=== PATIENT | female | born 1945 | race Caucasian/White ===

== ENCOUNTER 2017-03-22 15:16 | Observation (INO) | payer OTHER ==
--- NOTE | 2017-03-22 15:22 | EDPHY ---
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 HISTORY OF PRESENT ILLNESS: This patient very pleasant 71-year-old female she does have significant past medical history for coronary artery disease with 1 stent in her RCA 6 years old, she lives locally here [place] she presents emergency room with chest discomfort with her at bedside. She does not have an established yield analyst here. Her cardiac stent was placed in [place]. Patient tells me that she has been under lot of stress recently. She tells me that she was getting a bath earlier was very hot bath she developed a tightness around her chest from around her back like a band across her chest. This lasted approximately 20 minutes. She decided to take for 2 baby aspirin and nitroglycerin this nitroglycerin made her very dizzy. She thinks she may have had a syncopal episode after taking the nitroglycerin after hot bath. She ended up on the floor. Does not report severe headache or neck pain or significant trauma. Patient states that she had a 2nd episode of chest tightness bandlike across her chest wall going on a walk today. She presents emergency room with a discomfort across her chest as bandlike. Tightness. Denies nausea. Diaphoresis. Does complain of fatigue. Past Medical History: Coronary disease with 1 stent, [place] Past Surgical History: PTCA Social History: Denies daily use of tobacco or drugs, does have a glass of wine per evening Family History: Noncontributory ROS REVIEW OF SYSTEMS: A comprehensive 10 point review of systems is otherwise negative aside from elements mentioned in the history of present illness. Exam Constitutional appears anxious, stress, triage nursing summary reviewed, vital signs reviewed, awake/alert. Eyes normal conjunctivae and sclera, EOMI, PERRLA. HENT normal inspection, atraumatic, moist mucus membranes, no epistaxis, neck supple/ no meningismus, no raccoon eyes. Respiratory clear to auscultation bilaterally, normal breath sounds, no respiratory distress, no wheezing. Cardiovascular rate normal, regular rhythm, no murmur, no edema, distal pulses normal. Gastrointestinal soft, non-tender, no rebound, no guarding, normal bowel sounds, no distension, no pulsatile mass. Genitourinary no CVA tenderness. Musculoskeletal no midline vertebral tenderness, full range of motion, no calf swelling, no tenderness of extremities, no meningismus, good pulses, neurovascularly intact. Skin pink, warm, & dry, no rash, skin atraumatic. Neurologic awake, alert and oriented x 3, AAOx3, moves all 4 extremities equally, motor intact, sensory intact, CN II-XII intact, normal cerebellar, normal vision, normal speech. Psychiatric normal mood/affect. Heme/Lymph/Immune no lymphadenopathy. 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 Re-evaluation: EKG interpretation by me on record in [employer] system. Impression time of EKG 1527, this is sinus rhythm rate of 70 I do not appreciate any acute ST elevation or significant ST depression. Flat T-waves noted in inferior leads in 2, 3, AVF. 1617: ED x-ray chest one view negative for acute cardiopulmonary disease. 1617: Re-evaluation at this time patient resting comfortably she feels better after IV Ativan, receive rest of her aspirin and nitroglycerin her chest discomfort or tightness did improve with nitroglycerin. EKG is nonischemic troponin D-dimer negative. Blood work reassuring. Given her age, risk factors of coronary artery disease with 1 stent, chest tightness improved with nitroglycerin she will need to be admitted for ACS rule out. She is agreeable this plan. I will consult the hospitalist for admission. 1631: I spoke with Dr. Vanegas who has accepted admission for this patient. Plan for patient ACS rule out. I will also touch base with Cardiology as this patient has no established yield analyst does have a RCA stent. Coming in the emergency room for ACS rule out. EKG interpretation by me on record in [employer] system. Impression time of EKG 16 30, sinus rhythm rate of 59 no acute ischemic changes appreciated. Unchanged from previous EKG. 1638: Spoke with Lazaro with [facility]. Their plan on consulting on this patient. Source: Patient - Personal History Current Tetanus/Diphtheria Vaccine: Yes Tetanus Vaccine Date: < 10 years - Medical/Surgical History Hx Asthma: No Hx Chronic Respiratory Disease: No Hx Diabetes: No Hx Cardiac Disease: Yes Hx Renal Disease: No Hx Cirrhosis: No Hx Alcoholism: No Hx HIV/AIDS: No Hx Splenectomy or Spleen Trauma: No Other PMH: MITTAL, CAD, heart stent x 1 2011, numerous orthopedic surgeries, depression - Social History Smoking Status: Never smoked Constitutional: Initial Vital Signs Temperature (C) 36.5 C 03/22/17 15:17 Heart Rate 62 03/22/17 15:17 Respiratory Rate 18 03/22/17 15:17 Blood Pressure 149/103 H 03/22/17 15:17 O2 Sat (%) 97 03/22/17 15:17 O2 Delivery Mode Room Air Allergies/Adverse Reactions: ciprofloxacin [From Cipro] Allergy (Intermediate, Verified 03/22/17 15:20) Hives ciprofloxacin HCl [From Cipro] Allergy (Verified 07/29/15 18:39) gluten Allergy (Verified 07/29/15 18:40) meperidine HCl [From Demerol] Allergy (Verified 07/29/15 18:40) milk Allergy (Verified 07/29/15 18:40) Sulfa (Sulfonamide Antibiotics) Allergy (Verified 07/29/15 18:39) Home Medications: Medication Instructions Recorded Aspirin EC [Aspirin EC 81 mg (*)] 81 mg PO HS 03/22/17 Cholecalciferol Vit D3 [Vitamin D3 1,000 units PO DAILY 03/22/17 (*)] Herbals/Supplements -Info Only 1 ea PO DAILY 03/22/17 Melatonin [Melatonin 3 MG (*)] 4.5 mg PO HS 03/22/17 Multivitamins [Multivitamin (*)] 1 each PO DAILY 03/22/17 Basye-3 Fatty Acids [Fish Oil 1000 1,000 mg PO DAILY 03/22/17 mg (*)] Pravastatin Sodium 20 mg PO HS 03/22/17 Thyroid [[place] Thyroid 60 MG (*)] 60 mg PO DAILY10 03/22/17 Vitamin B Complex [Super B-50 1 each PO DAILY 03/22/17 Complex] Medical Decision Making - Diagnostics Imaging Results: Imaging Impressions Chest X-Ray 03/22/17 15:36 Impression: Mild interstitial prominence, which could be related to bronchitis. - Data Points Laboratory Results: Laboratory Results 03/22/17 15:31 03/22/1717 03/22/17 15:31 15:31 15:31 WBC 6.49 10^3/uL 10^3/uL (3.80-9.50) RBC 4.64 10^6/uL 10^6/uL (4.18-5.33) Hgb 13.9 g/dL g/dL (12.6-16.3) Hct 41.9 % % (38.0-47.0) MCV 90.3 fL fL (81.5-99.8) MCH 30.0 pg pg (27.9-34.1) MCHC 33.2 g/dL g/dL (32.4-36.7) RDW 14.6 % % (11.5-15.2) Plt Count 178 10^3/uL 10^3/uL (150-400) MPV 10.8 fL fL (8.7-11.7) Neut % (Auto) 48.1 % % (39.3-74.2) Lymph % (Auto) 40.1 % % (15.0-45.0) [place] % (Auto) 9.2 % % (4.5-13.0) Eos % (Auto) 1.8 % % (0.6-7.6) Baso % (Auto) 0.5 % % (0.3-1.7) Nucleat RBC Rel Count 0.0 % % (0.0-0.2) Absolute Neuts (auto) 3.12 10^3/uL 10^3/uL (1.70-6.50) Absolute Lymphs (auto) 2.60 10^3/uL 10^3/uL (1.00-3.00) Absolute Monos (auto) 0.60 10^3/uL 10^3/uL (0.30-0.80) Absolute Eos (auto) 0.12 10^3/uL 10^3/uL (0.03-0.40) Absolute Basos (auto) 0.03 10^3/uL 10^3/uL (0.02-0.10) Absolute Nucleated RBC 0.00 10^3/uL 10^3/uL (0-0.01) Immature Gran % 0.3 % % (0.0-1.1) Immature Gran # 0.02 10^3/uL 10^3/uL (0.00-0.10) PT 13.3 SEC SEC (12.0-15.0) INR 1.02 (0.83-1.16) APTT 28.4 SEC SEC (23.0-38.0) D-Dimer < 0.27 ug/mLFEU ug/mLFEU (0.00-0.50) Magnesium 2.0 mg/dL mg/dL (1.6-2.3) Total Bilirubin 0.6 mg/dL mg/dL (0.1-1.4) Conjugated Bilirubin 0.3 mg/dL mg/dL (0.0-0.5) Unconjugated Bilirubin 0.3 mg/dL mg/dL (0.0-1.1) AST 31 IU/L IU/L (14-46) ALT 35 IU/L IU/L (9-52) Alkaline Phosphatase 67 IU/L IU/L (38-126) Creatine Kinase 37 IU/L IU/L (0-156) CK-MB (CK-2) Fraction 0.85 ng/mL ng/mL (0-3.19) Troponin I < 0.012 ng/mL ng/mL (0-0.034) NT-Pro-B Natriuret Pep 66 pg/mL pg/mL (0-125) Total Protein 7.6 g/dL g/dL (6.3-8.2) Albumin 4.7 g/dL g/dL (3.5-5.0) Lipase 105.0 IU/L IU/L (23-300) Medications Given: Discontinued Medications Aspirin (Aspirin) 324 mg PO EDNOW ONE Stop: 03/22/17 15:37 Last Admin: 03/22/17 15:50 Dose: 324 mg Sodium Chloride (Ns) 1,000 mls @ 0 mls/hr IV ONCE ONE PRN Reason: Wide Open Stop: 03/22/17 15:37 Last Admin: 03/22/17 15:50 Dose: 1,000 mls Lorazepam (Ativan Injection) 0.5 mg IVP EDNOW ONE Stop: 03/22/17 15:37 Last Admin: 03/22/17 15:50 Dose: 0.5 mg Nitroglycerin (Nitrostat) 0.4 mg SL EDNOW ONE Stop: 03/22/17 15:42 Last Admin: 03/22/17 16:00 Dose: 0.4 mg Departure - Departure Disposition: [facility] Inpatient Acute Clinical Impression: Chest pain Qualifiers: Chest pain type: unspecified Qualified Code(s): R07.9 - Chest pain, unspecified Condition: Fair Referrals: ELPIDIO MULLEN [Primary Care Provider] - As per Instructions
[2017-03-22] MEDS ORDERED: NS 1,000 ML IV ONE (15:36)
[2017-03-22] MEDS ORDERED: ASPIRIN 81 MG CHEWABLE TAB PO ONE (15:36)
[2017-03-22] MEDS ORDERED: LORazepam 2 MG/ML INJ IVP ONE ×2 (15:36→21:00)
[2017-03-22] MEDS ORDERED: NITROGLYCERIN 0.4 MG BTL SL ONE (15:41)
[2017-03-22 15:42] LABS: % IMMATURE GRANULYOCYTES 0.3 % (0.0-1.1); ABSOLUTE IMMATURE GRANULOCYTES 0.02 10^3/uL (0.00-0.10); ADD DIFF? NO; ADD MORPH? NO; ADD SCAN? NO; ATYPICAL LYMPHOCYTE FLAG 0 (0-99); FRAGMENT RBC FLAG 0 (0-99); HEMATOCRIT 41.9 % (38.0-47.0); HEMOGLOBIN 13.9 g/dL (12.6-16.3); LEFT SHIFT FLG 0 (0-99); LIPEMIA HEMOLYSIS FLAG 80 (0-99); MEAN CELL HEMOGLOBIN CONCENTR. 33.2 g/dL (32.4-36.7); MEAN CELL VOLUME 90.3 fL (81.5-99.8); MEAN PLATELET VOLUME 10.8 fL (8.7-11.7); PLATELET CLUMPS FLAG 10 (0-99); PLATELET COUNT 178 10^3/uL (150-400); RED BLOOD CELL COUNT 4.64 10^6/uL (4.18-5.33); RED CELL DISTRIBUTION WIDTH 14.6 % (11.5-15.2)
[2017-03-22 15:54] LABS: APTT 28.4 SEC (23.0-38.0)
[2017-03-22 15:58] LABS: ALANINE AMINOTRANSFERASE 35 IU/L (9-52); ALBUMIN 4.7 g/dL (3.5-5.0); ALKALINE PHOSPHATASE 67 IU/L (38-126); ASPARTATE AMINOTRANSFERASE 31 IU/L (14-46); BILIRUBIN,TOTAL 0.6 mg/dL (0.1-1.4); BILIRUBIN-CONJUGATED 0.3 mg/dL (0.0-0.5); BILIRUBIN-UNCONJUGATED 0.3 mg/dL (0.0-1.1); TOTAL PROTEIN 7.6 g/dL (6.3-8.2)
[2017-03-22 16:04] LABS: INR 1.02 (0.83-1.16); PROTIME(PATIENT) 13.3 SEC (12.0-15.0)
[2017-03-22 16:09] LABS: CREATINE KINASE-MB FRACTION 0.85 ng/mL (0-3.19); TROPONIN I < 0.012 ng/mL (0-0.034)
--- NOTE | 2017-03-22 16:22 | CPEKG ---
Heart Rate: 70 RR Interval: 857 P-R Interval: 168 QRSD Interval: 94 QT Interval: 432 QTC Interval: 467 P [employer]: 52 QRS [employer]: 45 T Wave [employer]: 41 EKG Severity - NORMAL ECG - EKG Impression: SINUS RHYTHM Electronically Signed By: Jef Madden 22-Mar-2017 21:25:52
--- NOTE | 2017-03-22 16:31 | CPEKG ---
Heart Rate: 59 RR Interval: 1017 P-R Interval: 192 QRSD Interval: 94 QT Interval: 464 QTC Interval: 460 P [place]: 48 QRS [place]: 41 T Wave [place]: 41 EKG Severity - NORMAL ECG - EKG Impression: SINUS RHYTHM Electronically Signed By: Jef Madden 22-Mar-2017 21:25:52
--- NOTE | 2017-03-22 17:26 | PDGENHP ---
History and Physical - Chief Complaint chest pain - History of Present Illness This patient very pleasant 71-year-old female she does have significant past medical history for coronary artery disease with 1 stent in her RCA 5 years old , she lives locally here [place]. She does not have an established unattended ground sensor specialist here. Her cardiac stent was placed in [place]. Earlier today she had Chest pain x 2 times once at rest and the other on exertion while walking after drinking a Marijuana tea. Each time the pain lasted a few minutes and involved the lower part of her chest in a band like fashion. She reports that she did not realize that the tea contained marijuana. She has had lots of anxiety recently as she is planning a move back to [place]. In the ED, both EKG and troponin were unremarkable. I personally reviewed these. She is no longer symptomatic and denies CP, SOB, N/V, palpitations, leg swelling. She denies anxiety and appears quite comfortable. Past Medical History: Coronary disease with 1 stent, [place], HLD Past Surgical History: PTCA Social History: Denies daily use of tobacco or drugs, does have a glass of wine per evening Family History: Noncontributory History Information - Allergies/Home Medication List Allergies/Adverse Reactions: ciprofloxacin [From Cipro] Allergy (Intermediate, Verified 03/22/17 15:20) Hives ciprofloxacin HCl [From Cipro] Allergy (Verified 07/29/15 18:39) gluten Allergy (Verified 07/29/15 18:40) meperidine HCl [From Demerol] Allergy (Verified 07/29/15 18:40) milk Allergy (Verified 07/29/15 18:40) Sulfa (Sulfonamide Antibiotics) Allergy (Verified 07/29/15 18:39) Home Medications: Aspirin EC [Aspirin EC 81 mg (*)] 81 mg PO HS 03/22/17 [Last Taken Unknown] Cholecalciferol Vit D3 [Vitamin D3 (*)] 1,000 units PO DAILY 03/22/17 [Last Taken Unknown] Herbals/Supplements -Info Only 1 ea PO DAILY 03/22/17 [Last Taken Unknown] Melatonin [Melatonin 3 MG (*)] 4.5 mg PO HS 03/22/17 [Last Taken Unknown] Multivitamins [Multivitamin (*)] 1 each PO DAILY 03/22/17 [Last Taken Unknown] [place]-3 Fatty Acids [Fish Oil 1000 mg (*)] 1,000 mg PO DAILY 03/22/17 [Last Taken Unknown] Pravastatin Sodium 20 mg PO HS 03/22/17 [Last Taken Unknown] Thyroid [[place] Thyroid 60 MG (*)] 60 mg PO DAILY10 03/22/17 [Last Taken ] Vitamin B Complex [Super B-50 Complex] 1 each PO DAILY 03/22/17 [Last Taken Unknown] I have personally reviewed and updated: medical history, social history, surgical history - Social History Smoking Status: Never smoked Review of Systems ROS: 10pt was reviewed & negative except for what was stated in HPI & below Physical Exam Temp Pulse Resp BP Pulse Ox 36.4 C 63 20 121/63 H 94 03/22/17 16:30 03/22/17 16:30 03/22/17 16:30 03/22/17 16:30 03/22/17 16:30 Constitutional: no apparent distress, appears nourished Eyes: PERRL, EOMI Ears, Nose, Mouth, Throat: moist mucous membranes, hearing normal Cardiovascular: regular rate and rhythym, no murmur, rub, or gallop, No systolic murmur, No JVD Respiratory: no respiratory distress, no rales or rhonchi, clear to auscultation Gastrointestinal: normoactive bowel sounds, soft, non-tender abdomen, no palpable masses Skin: warm Neurologic: AAOx3, sensation intact bilaterally Psychiatric: interacting appropriately, not anxious Lab Data & Imaging Review 03/22/17 15:31 WBC 6.49 10^3/uL (3.80-9.50) 03/22/17 15:31 RBC 4.64 10^6/uL (4.18-5.33) 03/22/17 15:31 Hgb 13.9 g/dL (12.6-16.3) 03/22/17 15:31 Hct 41.9 % (38.0-47.0) 03/22/17 15:31 MCV 90.3 fL (81.5-99.8) 03/22/17 15:31 MCH 30.0 pg (27.9-34.1) 03/22/17 15:31 MCHC 33.2 g/dL (32.4-36.7) 03/22/17 15:31 RDW 14.6 % (11.5-15.2) 03/22/17 15: Plt Count 178 10^3/uL (150-400) 03/22/17 15: MPV 10.8 fL (8.7-11.7) 03/22/17 15: Neut % (Auto) 48.1 % (39.3-74.2) 03/22/17 15: Lymph % (Auto) 40.1 % (15.0-45.0) 03/22/17: [place] % (Auto) 9.2 % (4.5-13.0) 03/22/17 15: Eos % (Auto) 1.8 % (0.6-7.6) 03/22/17: Baso % (Auto) 0.5 % (0.3-1.7) 03/22/17: Nucleat RBC Rel Count 0.0 % (0.0-0.2) 03/22/17: Absolute Neuts (auto) 3.12 10^3/uL (1.70-6.50) 03/22/17 15: Absolute Lymphs (auto) 2.60 10^3/uL (1.00-3.00) 03/22/17: Absolute Monos (auto) 0.60 10^3/uL (0.30-0.80) 03/22/17 15: Absolute Eos (auto) 0.12 10^3/uL (0.03-0.40) 03/22/17: Absolute Basos (auto) 0.03 10^3/uL (0.02-0.10) 03/22/17: Absolute Nucleated RBC 0.00 10^3/uL (0-0.01) 03/22/17: Immature Gran % 0.3 % (0.0-1.1) 03/22/17: Immature Gran # 0.02 10^3/uL (0.00-0.10) 03/22/17 15: PT 13.3 SEC (12.0-15.0) 03/22/17 15: INR 1.02 (0.83-1.16) 03/22/17: APTT 28.4 SEC (23.0-38.0) 03/22/17 15:31 D-Dimer < 0.27 ug/mLFEU (0.00-0.50) 03/22/17 15:31 Magnesium 2.0 mg/dL (1.6-2.3) 03/22/17 15:31 Total Bilirubin 0.6 mg/dL (0.1-1.4) 03/22/17 15:31 Conjugated Bilirubin 0.3 mg/dL (0.0-0.5) 03/22/17 15:31 Unconjugated Bilirubin 0.3 mg/dL (0.0-1.1) 03/22/17 15:31 AST 31 IU/L (14-46) 03/22/17 15:31 ALT 35 IU/L (9-52) 03/22/17 15:31 Alkaline Phosphatase 67 IU/L (38-126) 03/22/17 15:31 Creatine Kinase 37 IU/L (0-156) 03/22/17 15:31 CK-MB (CK-2) Fraction 0.85 ng/mL (0-3.19) 03/22/17 15:31 Troponin I < 0.012 ng/mL (0-0.034) 03/22/17 15:31 NT-Pro-B Natriuret Pep 66 pg/mL (0-125) 03/22/17 15:31 Total Protein 7.6 g/dL (6.3-8.2) 03/22/17 15:31 Albumin 4.7 g/dL (3.5-5.0) 03/22/17 15:31 Lipase 105.0 IU/L (23-300) 03/22/17 15:31 Assessment & Plan Assessment: #Chest pain in a patient with hx of CAD and RCA stent 5 years ago #Anxiety #Recent exposure to Marijuana #HLD Plan: Admit to [facility] I suspect that this is not cardiac in nature and its due to anxiety and Marijuana ingestion which further increased her anxiety. However, given her multiple risk factors, will obtain complete CP r/o, serial enzymes. Will also do a treadmill stress test in the a.m. She may benefit from an SSRI or other agent. Restart home meds Continue daily aspirin I discussed this patient with Cardiology but no formal consult has been placed as there is no acute need. SCDs Full Code
[2017-03-22] MEDS ORDERED: MELATONIN 3 MG TAB PO SCH (21:00)
[2017-03-22] MEDS ORDERED: ASPIRIN EC 81 MG TAB PO SCH (21:00)
[2017-03-22] MEDS ORDERED: PRAVASTATIN SODIUM 20 MG TAB PO SCH (21:00)
[2017-03-23] MEDS ORDERED: THYROID 60 MG TAB PO SCH ×2 (06:00→10:00)
[2017-03-23] MEDS ORDERED: OMEGA-3 FATTY ACIDS 1,000 MG CAP PO SCH (09:00)
[2017-03-23] MEDS ORDERED: MULTIVITAMINS 1 EACH TAB PO SCH (09:00)
[2017-03-23] MEDS ORDERED: VITAMIN B COMPLEX PO SCH (09:00)
[2017-03-23] MEDS ORDERED: CHOLECALCIFEROL VIT D3 1,000 UNITS TAB PO SCH (09:00)
[2017-03-23] MEDS ORDERED: VITAMIN B COMPLEX 1 EA CAP/TAB PO SCH (09:00)
[2017-03-23 12:11] VITALS: BP 142/81; PULSE 60; RESP 20; TEMP 98.1; O2SAT 93
--- NOTE | 2017-03-23 14:24 | CPR ---
[f rep st] NONINVASIVE CARDIAC PROCEDURE REPORT PROCEDURE: Exercise treadmill for exercise treadmill myocardial perfusion imaging study. SUPERVISING INFUSION NURSE: Francis Gee MD INDICATION FOR STRESS TESTING: Patient with known history of CAD with previous stent 5 years ago in [place], and chest pressure. PRE: After obtaining informed consent and ensuring patient's n.p.o. status of caffeine for greater than 12 hours, patient was placed on an electrocardiogram. Initial EKG shows sinus bradycardia, nor mal axis, no ST or T-wave abnormalities suggesting of ischemia. The patient denies any chest pain, shortness of breath, or symptoms suggesting ischemia. Initial SpO2 94% on room air. Initial blood pressure 124/72. STRESS: Patient was placed on exercise treadmill, following standard Jeremiah protocol with the follow ing findings: 1. Patient exercised 9 minutes. 2. 10.2 METS. 3. Patient obtained a heart rate of 141 beats per minute, which 94% of MPHR. 4. Patient had no ST changes at peak exercise suggestive of ischemia. 5. At 7 minutes during exercise, patient did report mild midsternal chest pressure, rating it at 3/ 10, but non exercise-limiting. 6. SpO2 remained greater than 90% throughout testing. 7. Patient had no arrhythmias noted during rest, stress, or recovery. 8. BP variation 124/72 at rest, peak 142/74. 9. Stress testing was stopped due to maximum effort. 10. Acosta treadmill score of 5, placing patient at low cardiovascular risk. RECOVERY: Patient recovered for 5 minutes, heart rate and blood pressure returned to normal, patien t within 1 minute to 2 minutes reported chest pressure subsided, with no other symptoms. Again, no EKG changes suggestive of ischemia. In 6 minutes, vital signs were stable, she was pain free, and s he was sent down to Nuclear Medicine for her stress MPI imaging. IMPRESSION: A 71-year-old female with known history of coronary artery disease with previous stenti ng done of coronary artery in [place]. Admitted to the hospital with chest pressure, negative tropo nins x3, exercise treadmill on which she went 9 minutes, no ST or T-wave abnormalities suggestive of ischemia. At peak exercise, did report mild chest pressure. Patient is determined to be at low ca rdiovascular risk with a Acosta treadmill score of 5. Post MPI imaging pending. /[id number]/MODL
--- NOTE | 2017-03-23 16:05 | GDS ---
[f rep st] DISCHARGE SUMMARY DIAGNOSES: New and acute on this admission: Acute chest pain, noncardiac in origin, likely related to stress and anxiety. Chronic diagnoses: 1. 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 2. Gastroesophageal reflux disease. CONSULTATIONS: None. PROCEDURES: Myocardial perfusion nuclear scan showed that there was no evidence of myocardial ische diony. LVEF was calculated at 62%, and there were no wall motion abnormalities noted. LV cavity was judged to be normal. Another procedure was an exercise stress test where the patient was exercised for 9 minutes to 10.2 METS with a heart rate of 141, and there were no ST changes at peak exercise suggestive of ischemia. Stress test was stopped due to maximal effort. Acosta treadmill score was 5. HOSPITAL COURSE: A 71-year-old female with a known history of coronary artery disease who presented with a complaint of a bandlike feeling surrounding her chest. She presented because of recurrent n ature of this chest pain. She was admitted. EEG was found to show no evidence of cardiac ischemia. Serial troponins were negative. An exercise treadmill nuclear scan showed the patient exercised t o 10.2 METS, to maximal effort, and showed no signs of cardiac ischemia. The nuclear images showed no evidence of cardiac ischemia with an LVEF of 60%. It was judged that the patient's chest pain was likely due to stress as she is going to be moving in the next 2 weeks. She describes herself as being under significant tension and notes that she did have relief of her chest pain in the emergency department with the use of IV Ativan. DISCHARGE MEDICATIONS: These will be the same as her admission medications except for the addition of 1 medication. New medication is Ativan 1 mg tablet 1/2 to 1 mg p.o. q.h.s., #12. Her usual medications are ASA 81 mg a day, [place] Thyroid 60 mg daily, pravastatin 20 mg daily, Omeg a-3 fatty acids 1000 mg daily, herbal supplementation, vitamin B complex, multivitamin daily, vitami n D3 1000 mg daily, and melatonin 3 mg q.h.s. PLAN: The patient will return home in the company of her . She was chest pain-free. Her fo llowup will be with Dr. Rajinder Flanagan, who is a physician at [facility]. Note also that the patient reg l be moving to [place] in the next 2 weeks. Should she have recurrence of chest pain, she will foll ow up with Dr. Flanagan or with this facility in the emergency department. TIME: This discharge required 40 minutes, greater than 50% to director of counseling and coordinate her care with her care providers and explain matters to the patient. /[id number]/MODL
--- NOTE | 2017-03-23 17:19 | ECHO ---
[id number] + + [phone] : : [place] [address] : : [phone] + + Adult Echocardiographic Report + --------+ :Name: Singh DIANE Date: 03/23/2017 11:39 AM : : Hospital Admission Number: [id number] Locat ion: 207: :: 1945 Gender: Female Height: 66 in : :Age: 71 yrs Race: WH Weight: 150 l b : : : : BSA: 1.8 mete rs2 : :History: Chest Pain, History of RCA stent : + --------+ MMode/2D Measurements \T\ Calculations IVSd: 0.98 cm LVIDd: 4.2 cm FS: 40.1 % Ao root diam: 3.0 cm LVPWd: 0.98 cm LVIDs: 2.5 cm EDV(Teich): 78.5 ml ACS: 1.9 cm ESV(Teich): 22.7 ml EF(Teich): 71.1 % Normal Measurement Values: + + :LVIDd (3.5-5.7cm) IVSd (0.6-1.1cm) LVPWd (0.6-1.1cm) Aortic Root (2.0-3.7cm)Left Atrium (1.5-4.0cm): :LV Vol(d) (76-115ml) LV Vol(s) (29-48ml) Ejec Fraction (50-65%)PV Fabio (0.6- 1.2m/s) TV Fabio (0.4-1.0m/s) : :MV E Fabio (0.8-1.0m/s)MV A Fabio (0.3-1.0m/s)LVOT Fabio (0.7-1.2m/s) Asc Ao Fabio ( 0.9-1.8m/s) : + + Doppler Measurements \T\ Calculations MV E max fabio: Ao V2 max: LV V1 max: PA V2 max: 46.4 cm/sec 89.6 cm/sec 67.1 cm/sec 59.7 cm/sec MV A max fabio: Ao max PG: LV V1 max PG: PA max P.2 cm/sec 3.2 mmHg 1.8 mmHg 1.4 mmHg MV E/A: 0.72 TR max fabio: 230.8 cm/sec TR max P.3 mmHg RAP systole: 10.0 mmHg RVSP(TR): 31.3 mmHg Left Ventricle The left ventricle is normal in size. There is normal left ventricular wall thickness. The left ventricular ejection fraction is normal. There is Doppler evidence for diastolic dysfunction. Ejection Fraction = 72%. The left ventricular ejection fraction is calculated at 71.1 %. The left ventricular wall motion is normal. Right Ventricle The right ventricle is normal in size and function. Atria The left atrial size is normal. Right atrial size is normal. Mitral Valve The mitral valve is normal in structure and function. There is trace mitral regurgitation. Tricuspid Valve The tricuspid valve is not well visualized. There is trace to mild tricuspid regurgitation. Right ventricular systolic pressure is normal. Aortic Valve The aortic valve is normal in structure and function. The aortic valve is trileaflet. There is no aortic stenosis. There is no aortic insufficiency. Pulmonic Valve The pulmonic valve is not well visualized. There is no pulmonic valvular regurgitation. Great Vessels The aortic root is normal size. Pericardium/Pleural There is no pericardial effusion. Conclusion A complete two-dimensional transthoracic echocardiogram was performed (2D, M-mode, Doppler and color flow Doppler). (1) Left ventricular systolic ejection fraction was normal (>70%) - normal wall motion (2) No left ventricular hypertrophy (3) Diastolic dysfunction was present (4) Normal right ventriuclar size and function (5) Normal atrial dimensions (6) Physiologic mitral regurgitation (7) Trileaflet aortic valve without sclerosis or insufficiency (8) Trace/mild tricuspid regurgitation - RVSP was within normal limits (9) Poor visualization of the pulmonic valve (10) No comparison echocardiograms Final Reading Physician: Artur Metzger signed on 03/23/2017 05:18 PM Ordering Physician: Javier Vanegas Performed By: Casimiro Salcido, CS
== END 2017-03-23 15:29 | disposition home or self-care (01) ==
LOC: F2W 18:04
PROVIDERS: ADMIT Family Medicine; ATTEND Internal Medicine Pulmonary Disease
DX: R07.9 Chest pain, unspecified (principal); I25.10 Atherosclerotic heart disease of native coronary artery without angina pectoris; K21.9 Gastro-esophageal reflux disease without esophagitis; Z95.5 Presence of coronary angioplasty implant and graft
CPT/HCPCS: 71010; 78452; 93005; 93017; 93306; 96361; 96374; 99285; A9500; G0378; J2060